=== PATIENT | female | born 1960 | race Caucasian/White ===

== ENCOUNTER → 2018-07-12 | Outpatient (CLI) | payer OTHER ==
[~2018-07-12] MED LIST: ALBU90OI61 INH; CLEM1.34; CODGUAEL PO; LATA.005SO; ULTRA STRENGT PO
== END | disposition home or self-care (01) ==
LOC: PLD 12:48 → LAB SHORT 12:48
DX: R87.619 Unspecified abnormal cytological findings in specimens from cervix uteri (principal)
CPT/HCPCS: 88305

== ENCOUNTER 2023-09-07 07:28 | Day surgery (SDC) | payer OTHER ==
[~2023-09-07] VITALS: Ht 170.2 cm; Wt 89.7 kg
[2023-09-07 09:22] VITALS: BP 114/64
--- NOTE | 2023-09-07 09:23 | NUR ---
09/07/23 0923 Tonie Gonzalez IV DC'D CATH INTACT. PT TOLERATED WELL. COBAN/GAUZE IN PLACE
== END 2023-09-07 09:26 | disposition home or self-care (01) ==
LOC: ORSCSDS 07:28
PROVIDERS: Surgery
PROC: 0DBN8ZX Excision of Sigmoid Colon, Via Natural or Artificial Opening Endoscopic, Diagnostic (ICD-10-PCS; principal; 2023-09-07 08:30)
DX: Z12.11 Encounter for screening for malignant neoplasm of colon (principal); Z86.010 Personal history of colon polyps; K63.5 Polyp of colon; I48.91 Unspecified atrial fibrillation; H40.9 Unspecified glaucoma; I10 Essential (primary) hypertension; Z68.31 Body mass index [BMI] 31.0-31.9, adult; K57.90 Diverticulosis of intestine, part unspecified, without perforation or abscess without bleeding; Z79.899 Other long term (current) drug therapy
CPT/HCPCS: 88305; J2704; J7120